=== PATIENT | female | born 1995 | race Hispanic/Latino ===

== ENCOUNTER 2021-04-05 09:30 | Emergency (ER) | payer OTHER ==
[~2021-04-05] VITALS: Ht 152.4 cm; Wt 79.4 kg
[2021-04-05] MEDS ORDERED: NAPR-1180 PO (11:04)
[2021-04-05] MEDS ORDERED: METH-812 PO (11:04)
[2021-04-05 11:08] VITALS: BP 123/82
[2021-04-05] MEDS ORDERED: KETOROLAC 30MG VIAL (30MG/ML) IV SCH (11:17)
== END 2021-04-05 11:33 | disposition home or self-care (01) ==
LOC: EDBD 09:30 → EDH 09:30
DX: S16.1XXA Strain of muscle, fascia and tendon at neck level, initial encounter (principal); S20.219A Contusion of unspecified front wall of thorax, initial encounter; S39.012A Strain of muscle, fascia and tendon of lower back, initial encounter; V49.49XA Driver injured in collision with other motor vehicles in traffic accident, initial encounter; Y93.89 Activity, other specified; Y92.89 Other specified places as the place of occurrence of the external cause; Y99.8 Other external cause status
CPT/HCPCS: 71046; 72040; 72100; 96374; 99284; J1885